=== PATIENT | female | born 1990 ===

== ENCOUNTER 2017-01-07 12:08 | Emergency (ER) | payer MEDICAID, OTHER ==
[2017-01-07 12:12] VITALS: BP 133/80; PULSE 73; RESP 18; TEMP 98; O2SAT 98
--- NOTE | 2017-01-07 12:33 | C.PDOC ---
History Of Present Illness 26 year old female presents to the ED with complaints of rash to bilateral forearm beginning yesterday. She notes she has previously experienced similiar symptoms and PMD has recommended Aveeno cream for eczema. Patient reports rash was worse this morning. She denies itchingg, cough, runny nose, sore throat, or known allergens. Time Seen by Provider: 01/07/17 12:16 Chief Complaint (Nursing): Abnormal Skin Integrity History Per: Patient History/Exam Limitations: no limitations Onset/Duration Of Symptoms: Hrs Current Symptoms Are (Timing): Better Quality Of Symptoms: denies: Itching, Draining Severity: Mild Past Medical History Reviewed: Historical Data, Nursing Documentation, Vital Signs Vital Signs: Last Vital Signs Temp 98.0 F 01/07/17 12:11 Pulse 73 01/07/17 12:11 Resp 18 01/07/17 13:04 BP 133/80 01/07/17 12:11 Pulse Ox 98 01/07/17 17:09 - Medical History PMH: Asthma - [facility] Procedures DELIVERY OF PRODUCTS OF CONCEPTION, EXTERNAL APPROACH (03/18/16) MONITORING OF POC, CARDIAC RATE, LEATHER PIECE INSPECTOR APPROACH (03/18/16) REPAIR VULVA, EXTERNAL APPROACH (03/18/16) Family History: States: No Known Family Hx - Social History Hx Tobacco Use: No Hx Alcohol Use: No Hx Substance Use: No - Immunization History Hx Tetanus Toxoid Vaccination: No Hx Influenza Vaccination: No Hx Pneumococcal Vaccination: No Review Of Systems Except As Marked, All Systems Reviewed And Found Negative. Constitutional: Negative for: Fever, Chills ENT: Negative for: Nose Discharge, Nose Congestion, Throat Pain Cardiovascular: Negative for: Chest Pain Respiratory: Negative for: Cough, Shortness of Breath Skin: Positive for: Rash (bilateral forearms ) Physical Exam - Physical Exam Appears: Well, Non-toxic, No Acute Distress, Other (appears comfortable and is speaking in full sentences. ) Skin: Normal Color, Warm, Dry, Rash (scattered urticarial rash on bilateral forearms, nonvesicular, spares palms) Head: Normacephalic Eye(s): bilateral: Normal Inspection Oral Mucosa: Moist Tongue: Normal Appearing, No Swelling Lips: Normal Appearing, No Swelling Throat: Normal, No Erythema, No Exudate, No Drooling Cardiovascular: Rhythm Regular Respiratory: Normal Breath Sounds, No Rales, No Rhonchi, No Wheezing Neurological/Psych: Oriented x3 ED Course And Treatment O2 Sat by Pulse Oximetry: 98 (RA) Pulse Ox Interpretation: Normal Progress Note: Patient showed a photo of the rash this morning - urticarial in appearance. Patient given PO Prednisone, and Rx for prednisone and benadryl. She was instructed to follow up with PMD in 1-2 days, and understands she should return to ED if symptoms worsen. Reevaluation Time: 13:00 Reassessment Condition: Improved (Patient reassessed, symptoms improved.) Disposition Counseled Patient/Family Regarding: Diagnosis, Need For Followup, Rx Given - Disposition Referrals: [facility] at [facility] [Outside] Disposition: HOME/ ROUTINE Disposition Time: 12:45 Condition: STABLE Additional Instructions: SEGUIMIENTO CON PUGH MDICO O CLNICA EN 1-2 HENRIQUEZ USE MEDICACIONES SEGN SEA DIRIGIDO REGRESAR A LA ALEKS DE EMERGENCIA SI LOS SNTOMAS EMPEORARAN Prescriptions: DiphenhydrAMINE [Benadryl] 25 mg PO Q6 PRN #20 cap PRN Reason: Itching / Pruritus predniSONE [predniSONE Tab] 40 mg PO DAILY #8 tab Instructions: Urticaria (ED) Forms: [employer] (Guatemalan) Print Language: BELARUSIAN - Clinical Impression Clinical Impression: Urticaria - Scribe Statement The provider has reviewed the documentation as recorded by the Scribe Ashanti Tan All medical record entries made by the Scribe were at my direction and personally dictated by me. I have reviewed the chart and agree that the record accurately reflects my personal performance of the history, physical exam, medical decision making, and the department course for this patient. I have also personally directed, reviewed, and agree with the discharge instructions and disposition.
== END 2017-01-07 13:04 | disposition home or self-care (01) ==
LOC: C.ER 12:08
DX: L50.9 Urticaria, unspecified (principal)

== ENCOUNTER 2017-04-07 15:54 | Emergency (ER) | payer MEDICAID ==
[2017-04-07 16:00] VITALS: BMI 25.0
[2017-04-07 16:03] VITALS: TEMP 98.9; O2SAT 99
[2017-04-07] MEDS ORDERED: Naproxen 550 mg Tab PO STA (16:33)
[2017-04-07] MEDS ORDERED: Albuterol 0.083% Inhal Sol (2.5 mg/3 mL) UD IH STA (16:34)
[2017-04-07] MEDS ORDERED: Naproxen 550 mg Tab PO ONE (16:45)
[2017-04-07] MEDS ORDERED: Albuterol 0.083% Inhal Sol (2.5 mg/3 mL) UD ONE (16:45)
--- NOTE | 2017-04-07 16:50 | RAD ---
HISTORY: COUGH, CHEST PAIN COMPARISON: No prior. TECHNIQUE: Chest PA and lateral FINDINGS: LUNGS: No active pulmonary disease. PLEURA: No significant pleural effusion identified. No pneumothorax apparent. CARDIOVASCULAR: Normal. OSSEOUS STRUCTURES: No significant abnormalities. VISUALIZED UPPER ABDOMEN: Normal. OTHER FINDINGS: None. IMPRESSION: No active disease.
--- NOTE | 2017-04-07 17:47 | C.PDOC ---
History Of Present Illness 26-year-old female, presents to the emergency department with complaints of a subjective fever, cough and headache for the past week. Patient denies nausea/ vomiting/diarrhea, or any other associated symptoms. No other complaints at this time. Time Seen by Provider: 04/07/17 16:07 Chief Complaint (Nursing): Flu-like Symptoms History Per: Patient History/Exam Limitations: no limitations Onset/Duration Of Symptoms: Days Current Symptoms Are (Timing): Still Present Past Medical History Reviewed: Historical Data, Nursing Documentation, Vital Signs Vital Signs: Last Vital Signs Temp 98.9 F 04/07/17 16:00 Pulse 83 04/07/17 17:50 Resp 18 04/07/17 17:50 BP 121/84 04/07/17 17:50 Pulse Ox 99 04/07/17 17:50 - Medical History PMH: Asthma - [facility] Procedures DELIVERY OF PRODUCTS OF CONCEPTION, EXTERNAL APPROACH (03/18/16) MONITORING OF POC, CARDIAC RATE, ATOMIC WELDER APPROACH (03/18/16) REPAIR VULVA, EXTERNAL APPROACH (03/18/16) Family History: States: No Known Family Hx - Social History Hx Tobacco Use: No Hx Alcohol Use: No Hx Substance Use: No - Immunization History Hx Tetanus Toxoid Vaccination: No Hx Influenza Vaccination: No Hx Pneumococcal Vaccination: No Review Of Systems Constitutional: Positive for: Fever, Chills Cardiovascular: Negative for: Chest Pain Respiratory: Positive for: Cough. Negative for: Shortness of Breath Skin: Negative for: Rash Neurological: Positive for: Headache. Negative for: Weakness, Dizziness Physical Exam - Physical Exam Appears: Non-toxic, No Acute Distress, Other (intermittent cough) Skin: Warm, Dry, No Rash Head: Atraumatic, Normacephalic Eye(s): bilateral: Normal Inspection Nose: Normal Oral Mucosa: Moist Lips: Normal Appearing Neck: Normal ROM Chest: Symmetrical Cardiovascular: Rhythm Regular, No Murmur Respiratory: Normal Breath Sounds, No Accessory Muscle Use, Wheezing Extremity: Normal ROM Neurological/Psych: Oriented x3 ED Course And Treatment O2 Sat by Pulse Oximetry: 99 (on RA) Pulse Ox Interpretation: Normal Progress Note: Chest X-Ray ordered and reviewed. Patient treated with Duoneb, Naproxen and Tessalon for cough. Disposition Counseled Patient/Family Regarding: Diagnosis, Need For Followup, Rx Given - Disposition Referrals: [facility] at [facility] [Outside] Disposition: HOME/ ROUTINE Disposition Time: 17:45 Condition: STABLE Additional Instructions: SEGUIMIENTO CON PUGH MDICO / KOLBYA EN 1-2 HENRIQUEZ USE MEDICAMENTOS SEGN LO INDICADO REGRESE AL ALEKS DE EMERGENCIA SI LOS SNTOMAS EMPEORAN Prescriptions: Albuterol HFA [Ventolin HFA 90 mcg/actuation (8 g)] 0.09 mg IH Q4 PRN #1 puff PRN Reason: Wheezing Benzonatate [Tessalon Perles] 100 mg PO BID PRN #15 sgl PRN Reason: Cough predniSONE [predniSONE Tab] 40 mg PO DAILY #6 tab Instructions: Upper Respiratory Infection (ED), Viral Syndrome (ED) Forms: [email or web address] (Irish) Print Language: UZBEK - POA Present On Arrival: None - Clinical Impression Clinical Impression: Viral upper respiratory illness, Bronchospasm - Scribe Statement The provider has reviewed the documentation as recorded by the Scribe (Terrie Orozco) All medical record entries made by the Scribe were at my direction and personally dictated by me. I have reviewed the chart and agree that the record accurately reflects my personal performance of the history, physical exam, medical decision making, and the department course for this patient. I have also personally directed, reviewed, and agree with the discharge instructions and disposition.
[2017-04-07 17:51] VITALS: BP 121/84; PULSE 83; RESP 18
== END 2017-04-07 18:00 | disposition home or self-care (01) ==
LOC: C.ER 15:54
DX: J06.9 Acute upper respiratory infection, unspecified (principal); J98.01 Acute bronchospasm

== ENCOUNTER 2017-04-22 20:13 | Emergency (ER) | payer MEDICAID ==
[2017-04-22 20:13] VITALS: BMI 25.0
[2017-04-22 20:22] VITALS: TEMP 98.2; O2SAT 100
--- NOTE | 2017-04-22 20:33 | C.PDOC ---
History Of Present Illness 26 year old female presents to the ER complaining of cough and congestion which has been present for the past 2 weeks. Patient states that she was seen in the ER on April 07, 2017. She was given Tessalon, Prednisone and Albuterol. However, patient reports that there was no improvement with the medications as she is still experiencing the same symptoms. Patient denies having chest pain, SOB, abdominal pain, urinary symptoms or rash. Time Seen by Provider: 04/22/17 20:28 Chief Complaint (Nursing): Cough, Cold, Congestion History Per: Patient History/Exam Limitations: no limitations Onset/Duration Of Symptoms: Days Current Symptoms Are (Timing): Still Present Associated Symptoms: Cough, Nasal Congestion Severity: Moderate Past Medical History Reviewed: Historical Data, Nursing Documentation, Vital Signs Vital Signs: Last Vital Signs Temp 98.2 F 04/22/17 21:17 Pulse 96 H 04/22/17 21:17 Resp 14 04/22/17 21:17 BP 113/71 04/22/17 21:17 Pulse Ox 100 04/22/17 21:29 - Medical History PMH: Asthma Denies: Chronic Kidney Disease Surgical History: No Surg Hx - [facility] Procedures DELIVERY OF PRODUCTS OF CONCEPTION, EXTERNAL APPROACH (03/18/16) MONITORING OF POC, CARDIAC RATE, GLOBAL SUPPLY CHAIN VICE PRESIDENT APPROACH (03/18/16) REPAIR VULVA, EXTERNAL APPROACH (03/18/16) Family History: States: No Known Family Hx - Social History Hx Tobacco Use: No Hx Alcohol Use: No Hx Substance Use: No - Immunization History Hx Tetanus Toxoid Vaccination: No Hx Influenza Vaccination: No Hx Pneumococcal Vaccination: No Review Of Systems Except As Marked, All Systems Reviewed And Found Negative. ENT: Positive for: Nose Congestion Cardiovascular: Negative for: Chest Pain Respiratory: Positive for: Cough. Negative for: Shortness of Breath Gastrointestinal: Negative for: Abdominal Pain Genitourinary: Negative for: Dysuria, Frequency Skin: Negative for: Rash Physical Exam - Physical Exam Appears: Non-toxic, No Acute Distress Skin: Normal Color, Warm, Dry, No Rash Head: Atraumatic, Normacephalic Eye(s): bilateral: Normal Inspection, EOMI Ear(s): Bilateral: Normal Nose: Normal Oral Mucosa: Moist Throat: Normal, No Erythema, No Exudate Neck: Supple Chest: Symmetrical Cardiovascular: Rhythm Regular, No Murmur Respiratory: Normal Breath Sounds, No Accessory Muscle Use, No Rales, No Rhonchi , No Wheezing Extremity: Bilateral: Atraumatic, Normal ROM Neurological/Psych: Oriented x3, Normal Speech, Normal Motor, Normal Sensation Gait: Steady ED Course And Treatment O2 Sat by Pulse Oximetry: 100 (RA) Pulse Ox Interpretation: Normal Medical Decision Making Medical Decision Making: Patient with cough and congestion for 2 weeks. Patient seen in ED last week for similar symptoms and treated with Tessalon, Prednisone and Albuterol. Patient reports symptoms unchanged. Patient has no fever and exam was unremarkable. Lungs clear bilaterally and O2 saturation is adequate. CXR last week showed no active disease. Will treat with Zithromax. Rx given. Patient given follow up instructions. Instructed to return to ER if symptoms worsen or new symptoms arise. Disposition Counseled Patient/Family Regarding: Diagnosis, Need For Followup, Rx Given - Disposition Referrals: Siobhan Sandhu MD [Staff Provider] - Disposition: HOME/ ROUTINE Disposition Time: 20:46 Condition: GOOD Additional Instructions: Vaya a jones mdico o la clnica en 2-5 hoskins sin falta, para mas evaluacin. [place] los medicamentos ayala indicado. Volver a la josie de emergencia en cualquier momento si los sntomas persisten o empeoran. 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 - Scribe Statement The provider has reviewed the documentation as recorded by the Gokul Reddnig Provider Attestation All medical record entries made by the Scribe were at my direction and personally dictated by me. I have reviewed the chart and agree that the record accurately reflects my personal performance of the history, physical exam, medical decision making, and the department course for this patient. I have also personally directed, reviewed, and agree with the discharge instructions and disposition.
[2017-04-22 21:21] VITALS: BP 113/71; PULSE 96; RESP 14
== END 2017-04-22 21:50 | disposition home or self-care (01) ==
LOC: C.ER 20:13
DX: J40 Bronchitis, not specified as acute or chronic (principal)